=== PATIENT | female | born 1995 | race African-American/Black ===

== ENCOUNTER 2017-04-11 18:56 | Emergency (ER) | payer SELFPAY | END 2017-04-11 21:07 | disposition home or self-care (01) | LOC: FER 18:56 | DX: S61.210A Laceration without foreign body of right index finger without damage to nail, initial encounter (principal); W29.8XXA Contact with other powered hand tools and household machinery, initial encounter; Y92.69 Other specified industrial and construction area as the place of occurrence of the external cause; Y99.0 Civilian activity done for income or pay | CPT/HCPCS: 99282 ==